=== PATIENT | male | born 1995 | race American Indian/Alaskan Native ===

== ENCOUNTER 2017-03-15 18:51 | Emergency (ER) | payer OTHER ==
[2017-03-16] MEDS ORDERED: MOTRIN PO ONE (00:47)
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
[2017-03-16 01:41] VITALS: BP 120/82
== END 2017-03-16 01:40 | disposition home or self-care (01) ==
LOC: ED 18:51
DX: F07.81 Postconcussional syndrome (principal); G44.89 Other headache syndrome; J45.909 Unspecified asthma, uncomplicated; V49.49XA Driver injured in collision with other motor vehicles in traffic accident, initial encounter; Y93.89 Activity, other specified; Y92.89 Other specified places as the place of occurrence of the external cause; Y99.8 Other external cause status
CPT/HCPCS: 70450; 99283